=== PATIENT | female | born 1935 | race Caucasian/White ===

== ENCOUNTER 2017-05-28 14:36 | Emergency (ER) | payer MEDICARE ==
--- NOTE | 2017-05-28 14:50 | Emergency Department Record ---
History of Present Illness - General Chief Complaint: Chest Pain Stated Complaint: CHEST PAINS Time Seen by Provider: 05/28/17 14:46 Source: Patient Mode of Arrival: Ambulatory Limitations: No limitations - History of Present Illness Initial Comments: 81 yo female presents with heaviness in the chest the last 3-4 days that comes and goes. She states it will last several minutes then resolve. It is not related to any particular activity. She has had some left neck and left arm pain at times as well. She states timing ibrahim they have occurred at the same time. No fevers, chills, cough, nausea or vomiting. She has some strong urine odor. She has a history of CABG with 2 cardiac stents. Last stent was about 5 years ago. Gynecological Assistant is Dr Olsen. PCP is Hallack. MOORE Complaint: Chest pain -: Days(s) Onset: Other Pain Location: Left chest Pain Radiation: LUE, Jaw/teeth Severity: Moderate Quality: Heaviness Consistency: Intermittent Improves With: Nothing Worsens With: Nothing Context: Other Anginal Symptoms: Other Treatments Prior to Arrival: None - Related Data Previous Rx's Medication Instructions Recorded Insulin Detemir [Levemir Flextouch] 35 unit SQ 0700 #0 syringe 06/24/16 Allergies Allergy/AdvReac Type Severity Reaction Status Date / Time CORKY Inhibitors Allergy cough Verified 05/28/17 14:55 acetaminophen Allergy HIVES Verified 05/28/17 14:55 oxycodone Allergy HIVES Verified 05/28/17 14:55 shellfish derived Allergy HIVES Verified 05/28/17 14:55 iv contrast Allergy HIVES Uncoded 05/28/17 14:55 Review of Systems Constitutional: Denies: Chills, Fever, Malaise, Weakness Eyes: Denies: Eye discharge, Eye pain, Photophobia, Vision change ENT: Denies: Congestion, Dental pain, Ear pain, Throat pain Respiratory: Denies: Cough, Dyspnea, Hemoptysis, Stridor, Wheezes Cardiovascular: Reports: Chest pain. Denies: Edema, Syncope Endocrine: Denies: Fatigue Gastrointestinal: Denies: Abdominal pain, Diarrhea, Nausea, Vomiting Genitourinary: Reports: Dysuria. Denies: Urgency Musculoskeletal: Reports: Myalgia, Neck pain. Denies: Arthralgia, Back pain Skin: Denies: Bruising, Change in color, Rash Neurological: Denies: Confusion, Headache, Numbness Psychiatric: Denies: Anxiety Hematological/Lymphatic: Denies: Blood Clots, Easy bleeding, Easy bruising, Swollen glands Past Medical History - SOCIAL HISTORY Smoking Status: Never smoker - RESPIRATORY Hx Respiratory Disorders: No - CARDIOVASCULAR Hx Cardio Disorders: Yes Hx Cardiac Cath: Yes Hx Hypertension: Yes Hx Vascular Disease: Yes - NEURO Hx Neuro Disorders: No - GI Hx GI Disorders: Yes Hx Abdominal Pain: Yes Hx Diverticulitis: Yes (non diagnosed) - Hx Genitourinary Disorders: Yes Hx Renal Disease: Yes Hx UTI: Yes - ENDOCRINE Hx Endocrine Disorders: Yes Hx Diabetes: Yes (Type 2) Hx Thyroid Disease: No - MUSCULOSKELETAL Hx Musculoskeletal Disorders: Yes Hx Arthritis: Yes - PSYCH Hx Psych Problems: Yes Hx Anxiety: Yes - HEMATOLOGY/ONCOLOGY Hx Hematology/Oncology Disorders: No Family Medical History Hx Cancer: Father Hx Stroke: Mother Physical Exam - General General Appearance: Alert, Oriented x3, Cooperative, No acute distress Limitations: No limitations - Head Head exam: Normal inspection - Eye Eye exam: Normal appearance, PERRL - ENT ENT exam: Normal exam Ear exam: Normal external inspection Nasal Exam: Normal inspection Mouth exam: Normal external inspection Teeth exam: Normal inspection Throat exam: Normal inspection - Neck Neck exam: Normal inspection, Full ROM. negative: Meningismus, Tenderness - Respiratory Respiratory exam: Normal lung sounds bilaterally. negative: Accessory muscle use, Decreased breath sounds, Respiratory distress, Rhonchi, Stridor, Wheezes - Cardiovascular Cardiovascular Exam: Regular rate, Normal rhythm, Normal heart sounds Peripheral Pulses: 2+: Radial (R), Radial (L) - GI/Abdominal GI/Abdominal exam: Soft, Tenderness. negative: Distended, Guarding, Rebound, Rigid - Rectal Rectal exam: Deferred - exam: Deferred - Extremities Extremities exam: Normal inspection, Full ROM, Normal capillary refill. negative: Tenderness - Back Back exam: Reports: Normal inspection, Full ROM. Denies: CVA tenderness (R), CVA tenderness (L), Muscle spasm, Rash noted, Tenderness - Neurological Neurological exam: Alert, Normal gait, Oriented X3 - Psychiatric Psychiatric exam: Normal affect, Normal mood - Skin Skin exam: Dry, Intact, Normal color, Warm Course - Reevaluation(s) Reevaluation #1: EKG 14:43 NSR rate of 65, intervals normal, axis L, ST NS lateral changes, simialr to 05/04/17 05/28/17 14:48 05/28/17 15:32 The CBC was reviewed. No acute changes 05/28/17 15:38 No acute changes on the CMP The Troponin is negative at 0.01 The CXR was S/P CABG otherwise no acute changes. 05/28/17 16:02 I BRIEN Reyna of at [facility] [place] He accepts the patient for transfer for further testing Medical Decision Making - Lab Data Result diagrams: 05/28/17 14:45 05/28/17 14:45 Disposition Disposition: Transfer Clinical Impression: Chest pain Disposition: Still a Patient at [facility] Transfer To: [facility] [place] Reason For Transfer: chest pain history of CAD Accepting Physician: Axel Time Discussed w/Accepting Physician: 16:03 Condition: (1) Good Forms: Patient Portal Access Time of Disposition: 16:03 Quality - Quality Measures Quality Measures: N/A - Blood Pressure Screening Does Patient Have Any of the Following: Active Dx of HTN Blood Pressure Classification: Pre-Hypertensive BP Reading Systolic Measurement: 183 Diastolic Measurement: 86 Screening for High Blood Pressure: Patient Exclusion, Hx of HTN [G9744]
[2017-05-28 15:07] LABS: BASO % 0.4 % (0-6); EOS % 2.6 % (0-6); GRAN % 62.9 % (47-80); HEMATOCRIT 43.3 % (35.0-47.0); HEMOGLOBIN 14.2 gm/dl (11.6-16.0); LYMPH % 24.2 % (16-45); MEAN CELL VOLUME 85.4 fl (81-97); MEAN CORPUSCULAR HGB CONC 32.8 g/dl (32-36); MEAN PLATELET VOLUME 8.7 fl (7.4-10.4); MONO % 9.9 % (0-9); PLATELET COUNT 222 K/uL (130-400); RED BLOOD COUNT 5.07 M/uL (3.80-5.40); RED CELL DISTRIBUTION WIDTH 14.4 % (11.5-14.5); WHITE BLOOD COUNT W/O DIFF 8.1 K/uL (4.2-12.2)
[2017-05-28 15:19] LABS: PARTIAL THROMBOPLASTIN TIME 25.8 SECONDS (24.5-39.1); PROTHROMBIN TIME (PATIENT) 10.7 SECONDS (9.5-12.1)
[2017-05-28 15:28] LABS: BLOOD UREA NITROGEN 15 mg/dL (8-23); CREATININE 0.8 mg/dL (0.5-0.9); EST GLOMERULAR FILTRATION RATE > 60 mL/min
[2017-05-28 15:29] LABS: TOTAL PROTEIN 7.9 g/dL (6.6-8.7)
[2017-05-28 15:31] LABS: GLUCOSE,RANDOM 133 mg/dL (74-109)
[2017-05-28 15:33] LABS: ALB/GLOB RATIO 1.3 (1.1-1.8); ALBUMIN 4.4 g/dL (4.0-5.0); ALKALINE PHOSPHATASE 91 U/L (35-104); ALT/SGPT 12 U/L (<33); AST/SGOT 15 U/L (10.0-35.0); CREATINE PHOSPHOKINASE 78 U/L (26-192)
[2017-05-28 15:51] LABS: URINE APPEARANCE CLEAR; URINE BILIRUBIN NEGATIVE (NEGATIVE); URINE BLOOD TRACE-I (NEGATIVE); URINE COLOR YELLOW; URINE GLUCOSE (UA) NEGATIVE (NEGATIVE); URINE KETONE NEGATIVE (NEGATIVE); URINE LEUKOCYTE ESTERASE TRACE (NEGATIVE); URINE NITRITE NEGATIVE (NEGATIVE); URINE PROTEIN NEGATIVE (NEGATIVE); URINE UROBILINOGEN 0.2 E.U./dL (0.20 - 1.00)
[2017-05-28] MEDS ORDERED: ASPIRIN 81 MG CHEWABLE TABLET PO ONE (16:03)
[2017-05-28 16:07] LABS: URINE BACTERIA FEW; URINE EPITHELIAL CELLS 0 - 2 (FEW); URINE RBC 0 - 2 (NONE SEEN); URINE WBC 0 - 2 (0-2/hpf)
--- NOTE | 2017-05-29 09:20 | RADIOLOGY REPORT ---
DATE: 05/28/2017 at 1502 hours. EXAM: SINGLE-VIEW, CHEST. HISTORY: Chest tightness and pain. Previous open-heart surgery. TECHNIQUE: A single AP upright view of the chest was performed. COMPARISON: None. FINDINGS: The patient is status post median sternotomy. The heart is upper normal in size. There is calcification of the aorta. The mediastinum and pulmonary vasculature are normal. There are no acute infiltrates or effusions. There is no pneumothorax. The bones appear intact. IMPRESSION: NO ACUTE CHEST PATHOLOGY. JOB NUMBER: [id number] [facility]
== END 2017-05-28 18:06 | disposition still patient (30) ==
LOC: ER 14:36
DX: R07.89 Other chest pain (principal); I10 Essential (primary) hypertension; E11.9 Type 2 diabetes mellitus without complications; Z95.1 Presence of aortocoronary bypass graft; Z79.4 Long term (current) use of insulin
CPT/HCPCS: 71045; 80053; 81001; 82550; 82553; 83880; 84484; 85025; 85610; 85730; 93005; 93010; 99285

== ENCOUNTER 2019-02-24 12:04 | Observation (INO) | payer MEDICARE ==
--- NOTE | 2019-02-24 12:32 | Emergency Department Record ---
History of Present Illness - General Chief complaint: Nausea, Vomiting, Diarrhea Stated complaint: DIARRHEA X3DAYS,SHAKEY Time Seen by Provider: 02/24/19 12:28 Source: Patient - History of Present Illness Initial comments: The patient states she has had 3 days of diarrhea, 3-4 episodes daily. She denies nausea or vomiting. She has a long medical history of multiple medical problems including diabetes for which she takes Lantus. She denies chest pain, REE, fevers, or chills. MD complaint: Diarrhea - Related Data Home Medications Medication Instructions Recorded Confirmed Last Taken Bupropion HCl [Wellbutrin Xl] 150 mg PO DAILY 02/24/19 02/24/19 02/24/19 Naproxen [Naprosyn] 500 mg PO BID PRN 02/24/19 02/24/19 02/24/19 Allergies Allergy/AdvReac Type Severity Reaction Status Date / Time CORKY Inhibitors Allergy cough Verified 05/28/17 14:55 acetaminophen Allergy HIVES Verified 05/28/17 14:55 oxycodone Allergy HIVES Verified 05/28/17 14:55 shellfish derived Allergy HIVES Verified 05/28/17 14:55 iv contrast Allergy HIVES Uncoded 05/28/17 14:55 Review of Systems Reviewed: No additional complaints except as noted below Constitutional: Reports: As per HPI. Denies: Chills, Fever, Malaise, Night sweats, Weakness, Weight change Eyes: Reports: As per HPI. Denies: Eye discharge, Eye pain, Photophobia, Vision change ENT: Reports: As per HPI. Denies: Congestion, Dental pain, Ear pain, Epistaxis, Hearing loss, Throat pain Respiratory: Reports: As per HPI. Denies: Cough, Dyspnea, Hemoptysis, Stridor, Wheezes Cardiovascular: Reports: As per HPI. Denies: Arrhythmia, Chest pain, Dyspnea on exertion, Edema, Murmurs, Orthopnea, Palpitations, Paroxysmal nocturnal dyspnea, Rheumatic Fever, Syncope Endocrine: Reports: As per HPI. Denies: Fatigue, Heat or cold intolerance, Polydipsia, Polyuria Gastrointestinal: Reports: As per HPI. Denies: Abdominal pain, Constipation, Diarrhea, Hematemesis, Hematochezia, Melena, Nausea, Vomiting Genitourinary: Reports: As per HPI. Denies: Abnormal menses, Discharge, Dyspareunia, Dysuria, Frequency, Hematuria, Incontinence, Retention, Urgency Musculoskeletal: Reports: As per HPI. Denies: Arthralgia, Back pain, Gout, Joint swelling, Myalgia, Neck pain Skin: Reports: As per HPI. Denies: Bruising, Change in color, Change in hair/nails, Lesions, Pruritus, Rash Neurological: Reports: As per HPI. Denies: Abnormal gait, Confusion, Headache, Numbness, Paresthesias, Seizure, Tingling, Tremors, Vertigo, Weakness Psychiatric: Reports: As per HPI. Denies: Anxiety, Auditory hallucinations, Depression, Homicidal thoughts, Suicidal thoughts, Visual hallucinations Hematological/Lymphatic: Reports: As per HPI. Denies: Anemia, Blood Clots, Easy bleeding, Easy bruising, Swollen glands Past Medical History - SOCIAL HISTORY Smoking Status: Never smoker - RESPIRATORY Hx Respiratory Disorders: No - CARDIOVASCULAR Hx Cardio Disorders: Yes Hx Cardiac Cath: Yes Hx Hypertension: Yes Hx Vascular Disease: Yes - NEURO Hx Neuro Disorders: No - GI Hx GI Disorders: Yes Hx Abdominal Pain: Yes Hx Diverticulitis: Yes (non diagnosed) - Hx Genitourinary Disorders: Yes Hx Renal Disease: Yes Hx UTI: Yes - ENDOCRINE Hx Endocrine Disorders: Yes Hx Diabetes: Yes (Type 2) Hx Thyroid Disease: No - MUSCULOSKELETAL Hx Musculoskeletal Disorders: Yes Hx Arthritis: Yes - PSYCH Hx Psych Problems: Yes Hx Anxiety: Yes - HEMATOLOGY/ONCOLOGY Hx Hematology/Oncology Disorders: No Family Medical History Hx Cancer: Father Hx Stroke: Mother Physical Exam - General General Appearance: Alert, Oriented x3, Cooperative, No acute distress - Head Head exam: Normal inspection - Eye Eye exam: Normal appearance, PERRL, EOMI. negative: Conjunctival injection, Nystagmus Pupils: Normal accommodation - ENT ENT exam: Normal exam, Mucous membranes moist, Normal external ear exam, Normal orophraynx, TM's normal bilaterally Ear exam: Normal external inspection. negative: External canal tenderness Nasal Exam: Normal inspection. negative: Discharge, Sinus tenderness Mouth exam: Normal external inspection, Tongue normal Teeth exam: Normal inspection. negative: Dental caries Throat exam: Normal inspection. negative: Tonsillar erythema, Tonsillar exudate - Neck Neck exam: Normal inspection, Full ROM. negative: Lymphadenopathy, Meningismus, Tenderness - Respiratory Respiratory exam: Normal lung sounds bilaterally. negative: Respiratory distress - Cardiovascular Cardiovascular Exam: Regular rate, Normal rhythm, Normal heart sounds - GI/Abdominal GI/Abdominal exam: Soft, Normal bowel sounds, Tenderness (left side of abdomen on palpation is mildly tender.) - Rectal Rectal exam: Deferred - exam: Deferred - Extremities Extremities exam: Normal inspection, Full ROM, Normal capillary refill. negative: Calf tenderness, Pedal edema, Tenderness - Back Back exam: Reports: Normal inspection, Full ROM. Denies: CVA tenderness (R), CVA tenderness (L), Muscle spasm, Rash noted, Tenderness - Neurological Neurological exam: Alert, CN II-XII intact, Normal gait, Oriented X3, Reflexes normal. negative: Altered, Motor sensory deficit - Psychiatric Psychiatric exam: Normal affect, Normal mood - Skin Skin exam: Dry, Intact, Normal color, Warm Course - Reevaluation(s) Reevaluation #1: 02/24/19 16:[address] Deluna who accepts patient for observation and hydration. Patient in agreement with this plan. Reevaluation #2: Patient has not had any diarrhea while in the emergency department. 02/24/19 16:07 Medical Decision Making - Management Options MDM Management: Additional Work-up Planned (e.g. ADM/Transfer/OP Study) - Data Complexity MDM Data: Labs Ordered and/or Reviewed (BUN 36; Cr 1.5, significantly elevated from priors; UA: 3+bact, 36-50 WBC, 0-2 RBC, +N.), X-Ray Ordered and/or Reviewed (CT scan adom pelvis: No bowel obstruction or colitis; chronic changes. Per radiologist.) - Lab Data Result diagrams: 02/24/19 13:08 02/24/19 13:08 Disposition Disposition: Admit Clinical Impression: Kidney infection, Renal insufficiency, Dehydration Diarrhea Qualifiers: Diarrhea type: unspecified type Qualified Code(s): R19.7 - Diarrhea, unspecified Disposition: Still a Patient at [facility] Decision to Admit: Admit from ER Decision to Admit Date: 02/24/19 Decision to Admit Time: 15:52 Accepting Physician: Dr. Deluna Condition: (2) Stable Quality - Quality Measures Quality Measures: N/A - Blood Pressure Screening Does Patient Have Any of the Following: No Blood Pressure Classification: Hypertensive Reading Systolic Measurement: 142 Diastolic Measurement: 57 Screening for High Blood Pressure: Patient Exclusion, Hx of HTN [G9744]
[2019-02-24] MEDS ORDERED: 0.9 % SODIUM CHLORIDE 1000ML 1,000 ML IV ONE ×2 (12:54→16:37)
[2019-02-24 13:19] LABS: ABSOLUTE NEUTROPHIL COUNT 7.98; HEMATOCRIT 41.1 % (35.0-47.0); HEMOGLOBIN 12.9 gm/dl (11.6-16.0); MEAN CELL VOLUME 86.5 fl (81-97); MEAN CORPUSCULAR HEMOGLOBIN 27.2 pg (27-33); MEAN CORPUSCULAR HGB CONC 31.4 g/dl (32-36); MEAN PLATELET VOLUME 8.5 fl (7.4-10.4); PLATELET COUNT 234 K/uL (130-400); RED BLOOD COUNT 4.75 M/uL (3.80-5.40); RED CELL DISTRIBUTION WIDTH 15.1 % (11.5-14.5); WHITE BLOOD COUNT W/O DIFF 9.8 K/uL (4.2-12.2)
[2019-02-24 14:06] LABS: BILIRUBIN,TOTAL 0.2 mg/dL (0.2-1.0); CREATININE 1.5 mg/dL (0.5-0.9); TOTAL PROTEIN 7.4 g/dL (6.6-8.7)
[2019-02-24 14:11] LABS: ALB/GLOB RATIO 1.5 (1.1-1.8); ALBUMIN 4.4 g/dL (4.0-5.0)
[2019-02-24 14:47] LABS: URINE APPEARANCE CLEAR; URINE BILIRUBIN NEGATIVE (NEGATIVE); URINE BLOOD SMALL (NEGATIVE); URINE COLOR YELLOW; URINE GLUCOSE (UA) NEGATIVE (NEGATIVE); URINE KETONE NEGATIVE (NEGATIVE); URINE LEUKOCYTE ESTERASE LARGE (NEGATIVE); URINE NITRITE POSITIVE (NEGATIVE); URINE PROTEIN NEGATIVE (NEGATIVE); URINE UROBILINOGEN 0.2 E.U./dL (0.20 - 1.00)
[2019-02-24 15:05] LABS: URINE BACTERIA 3+; URINE EPITHELIAL CELLS 21 - 35 (FEW); URINE RBC 0 - 2 (NONE SEEN); URINE WBC 36 - 50 (0-2/hpf)
--- NOTE | 2019-02-24 15:22 | CT SCAN REPORT ---
EXAMINATION: CT Abdomen and Pelvis without IV Contrast EXAM DATE: 02/24/2019 1:41 PM TECHNIQUE: Standard protocol CT imaging of the abdomen and pelvis was performed without intravenous c ontrast. INDICATION: left sided AP, diarrhea; COMPARISON: 06/22/2016 ENCOUNTER: Not applicable CT ABDOMEN AND PELVIS FINDINGS: Lung Bases: Included extent of the lung bases are clear. Post surgical changes consistent with prior CABG Hepatobiliary: The liver has a normal size with a smooth surface. The gallbladder is absent. There is no biliary dilatation. Pancreas: The pancreas is normal. Spleen: The spleen is not enlarged. Adrenals: The adrenal glands are normal. Kidneys, Ureters, & Bladder: 2 right-sided renal cystic lesions measure approximately 3 cm in diamete r. No hydronephrosis. Gastrointestinal: The stomach and small bowel are normal with no obstruction or inflammation. Anastom otic suture noted in the cecum consistent with ileocolic anastomosis. No evidence of bowel obstructio n or colitis. Prominent fluid within the colon. Appendix is likely surgically absent Reproductive Organs: The uterus is absent. Lymphatic System: There is no adenopathy within the abdomen or pelvis. Vasculature: Normal caliber abdominal aorta. Extensive arterial calcification Peritoneum: No free fluid, free air, or inflammation Abdominal wall & Musculoskeletal: No suspicious bone lesions. Degenerative changes of the spine Assessment of the solid organs, soft tissues, and vascular structures is overall limited on noncontra st imaging, IMPRESSION: 1. Post surgical change of the cecum with ileocolic anastomosis, without evidence of complication. Th ere is prominent fluid in the colon but no evidence of bowel obstruction or colitis. 2. Other chronic findings as above. Please note that interpretation was delayed due to technical issues the dictation system Dictated by: PRISCILLA REEVES MD on 02/24/2019 3:15 PM. .
[2019-02-24] MEDS ORDERED: 0.9 % SODIUM CHLORIDE 1,000 ML BAG IV ONE (15:43)
[2019-02-24] MEDS ORDERED: CEFTRIAXONE SODIUM 1 GM in 0.9 % SODIUM CHLORIDE 100ML 100 ML IVPB ONE (15:48)
[2019-02-24] MEDS ORDERED: ALPRAZOLAM 0.25 MG TABLET PO PRN (16:37)
[2019-02-24] MEDS ORDERED: ONDANSETRON HCL IV 4 MG/2 ML VIAL IVP PRN (16:37)
[2019-02-24] MEDS ORDERED: NAPROXEN 250 MG TABLET PO PRN (17:01)
[2019-02-24] MEDS ORDERED: CITALOPRAM 20 MG TABLET PO SCH (22:00)
[2019-02-24] MEDS ORDERED: VIT A PO SCH (22:00)
[2019-02-24] MEDS ORDERED: [UNRECOGNIZED DRUG - OTHER] PO SCH (22:00)
[2019-02-24] MEDS ORDERED: ZNOX PO SCH (22:00)
[2019-02-24] MEDS ORDERED: E AC PO SCH (22:00)
[2019-02-24] MEDS ORDERED: CIPROFLOXACIN LACTATE/D5W 400 MG/200 ML BAG IVPB ONE (22:00)
[2019-02-24] MEDS ORDERED: CUPRIC OXIDE PO SCH (22:00)
[2019-02-24] MEDS: DOCUSATE SODIUM 100 MG CAPSULE PO SCH ×2 (23:00→23:10)
[2019-02-24] MEDS: CARVEDILOL 12.5 MG TABLET PO SCH (23:00)
[2019-02-24] MEDS: LEVEMIR FLEXTOUCH 100 UNIT/ML INSULIN PEN SQ SCH (23:06)
[2019-02-25 04:41] LABS: BASO % 0.2 % (0-6); EOS % 2.3 % (0-6); GRAN % 62.8 % (47-80); HEMATOCRIT 38.5 % (35.0-47.0); HEMOGLOBIN 11.9 gm/dl (11.6-16.0); MEAN CELL VOLUME 86.1 fl (81-97); MEAN CORPUSCULAR HEMOGLOBIN 26.6 pg (27-33); MEAN CORPUSCULAR HGB CONC 30.9 g/dl (32-36); MEAN PLATELET VOLUME 8.5 fl (7.4-10.4); MONO % 11.7 % (0-9); PLATELET COUNT 237 K/uL (130-400); RED BLOOD COUNT 4.47 M/uL (3.80-5.40); RED CELL DISTRIBUTION WIDTH 14.9 % (11.5-14.5); WHITE BLOOD COUNT W/O DIFF 9.2 K/uL (4.2-12.2)
[2019-02-25 04:56] LABS: CREATININE 1.1 mg/dL (0.5-0.9)
[2019-02-25] MEDS ORDERED: FISH OIL PO SCH (10:00)
[2019-02-25] MEDS ORDERED: ASPIRIN 81 MG TABEC PO SCH (10:00)
[2019-02-25] MEDS ORDERED: LEVEMIR FLEXTOUCH 100 UNIT/ML INSULIN PEN SQ SCH (10:00)
[2019-02-25] MEDS ORDERED: AMLODIPINE BESYLATE 5MG TAB PO SCH (10:00)
[2019-02-25] MEDS ORDERED: OMEGA PO SCH (10:00)
[2019-02-25] MEDS ORDERED: HYDROCHLOROTHIAZIDE 12.5 MG CAPSULE PO SCH (10:00)
[2019-02-25] MEDS ORDERED: LOSARTAN POTASSIUM 25 MG TABLET PO SCH (10:00)
[2019-02-25] MEDS ORDERED: BUPROPION HCL 150 MG TAB.SR.12H PO SCH (10:00)
[2019-02-25] MEDS ORDERED: FATTY ACIDS PO SCH (10:00)
[2019-02-25] MEDS ORDERED: UBIDECARENONE 100 MG PO SCH (10:00)
[2019-02-25] MEDS: CARVEDILOL 12.5 MG TABLET PO SCH (10:08)
[2019-02-25] MEDS: LEVEMIR FLEXTOUCH 100 UNIT/ML INSULIN PEN SQ SCH (11:22)
[2019-02-25] MEDS ORDERED: CIPROFLOXACIN LACTATE/D5W 400 MG/200 ML BAG IVPB SCH (12:15)
[2019-02-25] MEDS ORDERED: 0.9 % SODIUM CHLORIDE 1000ML 1,000 ML IV PRN (12:16)
[2019-02-25] MEDS ORDERED: POTASSIUM CHLORIDE 20 MEQ TABLET PO ONE (13:11)
[2019-02-25] MEDS ORDERED: ENOXAPARIN 30 MG/0.3 ML SYR SQ SCH (13:15)
--- NOTE | 2019-02-25 13:54 | Discharge Summary ---
Providers Discharge Summary Date: 02/25/19 Date of admission: 02/24/19 16:19 Expected Date of Discharge: 02/25/19 Attending physician: Gallito Deluna Primary care physician: SANTA MELÉNDEZ M.D. Physical Exam - Vital Signs Vital Signs: Vital Signs - Last 24 Hrs Temp Pulse Resp BP Pulse Ox 02/25/19 09:00 65 18 02/25/19 07:32 98.4 F 65 20 119/60 96 02/24/19 21:29 97.9 F 71 18 145/64 94 L 02/24/19 21:00 71 02/24/19 17:17 69 16 02/24/19 16:37 97.3 F L 69 158/68 97 - General General Appearance: Alert, Oriented x3, Cooperative, No acute distress Limitations: No limitations - Head Head exam: Normal inspection Head exam detail: negative: Abrasion, Contusion - Eye Eye exam: Normal appearance, PERRL, EOMI. negative: Conjunctival injection, Nystagmus Pupils: Normal accommodation - ENT ENT exam: Normal exam, Mucous membranes moist, Normal external ear exam, Normal orophraynx, TM's normal bilaterally Ear exam: Normal external inspection. negative: External canal tenderness Nasal Exam: Normal inspection. negative: Discharge, Sinus tenderness Mouth exam: Normal external inspection, Tongue normal Teeth exam: Normal inspection. negative: Dental caries Throat exam: Normal inspection. negative: Tonsillar erythema, Tonsillar exudate - Neck Neck exam: Normal inspection, Full ROM. negative: Lymphadenopathy, Meningismus, Tenderness - Respiratory Respiratory exam: Normal lung sounds bilaterally. negative: Respiratory distress - Cardiovascular Cardiovascular Exam: Regular rate, Normal rhythm, Normal heart sounds - GI/Abdominal GI/Abdominal exam: Soft, Normal bowel sounds, Tenderness (left side of abdomen on palpation is mildly tender.) - Rectal Rectal exam: Deferred - exam: Deferred - Extremities Extremities exam: Normal inspection, Full ROM, Normal capillary refill. negative: Calf tenderness, Pedal edema, Tenderness - Back Back exam: Reports: Normal inspection, Full ROM. Denies: CVA tenderness (R), CVA tenderness (L), Muscle spasm, Rash noted, Tenderness - Neurological Neurological exam: Alert, CN II-XII intact, Normal gait, Oriented X3, Reflexes normal. negative: Altered, Motor sensory deficit - Psychiatric Psychiatric exam: Normal affect, Normal mood - Skin Skin exam: Dry, Intact, Normal color, Warm Hospitalization - Hospitalization Admission Diagnosis: kidney infection; renal insufficiency; diarrhea; dehydration - Problem List/Discharge Diagnosis (1) UTI (urinary tract infection) Current Visit: Yes Status: Acute Discharge Diagnosis: Urinary tract infection type: acute cystitis Hematuria presence: without hematuria Qualified Code(s): N30.00 - Acute cystitis without hematuria Base Code: N39.0 - URINARY TRACT INFECTION, SITE NOT SPECIFIED Diagnosis Priority: Primary Comment: urine showing signs of a UTI but she had a fair amount of epi cells. Will start cipro 500 mg bid for 7 days and don't want to go longer than 7 days because of her history of c diff. She states no diarrhea for 24 hours now (2) Hypoglycemia Current Visit: Yes Status: Acute Base Code: E16.2 - HYPOGLYCEMIA, UNSPECIFIED Diagnosis Priority: Secondary Comment: low glucose during the night 47 reqyured arange juice and food and sugar came up. Will decrease her Lantus to 10 units twice a day and she takes her lantus Twice a day prior to coming to the ED. I told her her surgars may come up at home and to check her sugar three times a day and show her DrHelen the numbers and he can adjust her insulin (3) Dehydration Current Visit: Yes Status: Acute Base Code: E86.0 - DEHYDRATION Diagnosis Priority: Primary (4) Diarrhea Current Visit: Yes Status: Acute Discharge Diagnosis: Diarrhea type: unspecified type Qualified Code(s): R19.7 - Diarrhea, unspecified Base Code: R19.7 - DIARRHEA, UNSPECIFIED Diagnosis Priority: Primary (5) Renal insufficiency Current Visit: Yes Status: Acute Base Code: N28.9 - DISORDER OF KIDNEY AND URETER, UNSPECIFIED Diagnosis Priority: Primary Comment: improved with dydration and creat is 1.1 - Disposition much improved and will discharge. She is eating and drinking and no vomiting - Hospitalization Course Disposition: Home, Self-Care Hospital Course: patient is improved Procedures: Imaging and X-Rays 02/24/19 12:54 ABDOMEN/PELVIS WO CONTRAST [CT] Stat Abnormal Labs: Abnormal Lab Results 02/24/19 02/24/19 02/24/19 Range/Units 13:08 13:08 13:29 MCH (27-33) pg MCHC 31.4 L (32-36) g/dl RDW 15.1 H (11.5-14.5) % Neutrophils % 84.0 H (47-80) % Monocytes % (0-9) % Lymphocytes 9.0 L (16-45) % Potassium (3.4-4.5) mmol/L Chloride (98-107) mmol/L BUN 36 H (8-23) mg/dL Creatinine 1.5 H (0.5-0.9) mg/dL POC Glucose (70-110) mg/dL Random Glucose 182 H (74-109) mg/dL Urine Blood Small H (NEGATIVE) Urine Nitrite Positive H (NEGATIVE) Ur Leukocyte Esterase Large H (NEGATIVE) 02/24/19 02/25/19 02/25/19 Range/Units 22:00 04:25 04:30 MCH 26.6 L (27-33) pg MCHC 30.9 L (32-36) g/dl RDW 14.9 H (11.5-14.5) % Neutrophils % (47-80) % Monocytes % 11.7 H (0-9) % Lymphocytes (16-45) % Potassium (3.4-4.5) mmol/L Chloride (98-107) mmol/L BUN (8-23) mg/dL Creatinine (0.5-0.9) mg/dL POC Glucose 134 H 42 L* (70-110) mg/dL Random Glucose (74-109) mg/dL Urine Blood (NEGATIVE) Urine Nitrite (NEGATIVE) Ur Leukocyte Esterase (NEGATIVE) 02/25/19 02/25/19 02/25/19 Range/Units 04:30 04:30 05:10 MCH (27-33) pg MCHC (32-36) g/dl RDW (11.5-14.5) % Neutrophils % (47-80) % Monocytes % (0-9) % Lymphocytes (16-45) % Potassium 3.2 L (3.4-4.5) mmol/L Chloride 110 H (98-107) mmol/L BUN (8-23) mg/dL Creatinine 1.1 H (0.5-0.9) mg/dL POC Glucose 127 H (70-110) mg/dL Random Glucose 47 L* 47 L* (74-109) mg/dL Urine Blood (NEGATIVE) Urine Nitrite (NEGATIVE) Ur Leukocyte Esterase (NEGATIVE) 02/25/19 Range/Units 07:30 MCH (27-33) pg MCHC (32-36) g/dl RDW (11.5-14.5) % Neutrophils % (47-80) % Monocytes % (0-9) % Lymphocytes (16-45) % Potassium (3.4-4.5) mmol/L Chloride (98-107) mmol/L BUN (8-23) mg/dL Creatinine (0.5-0.9) mg/dL POC Glucose 176 H (70-110) mg/dL Random Glucose (74-109) mg/dL Urine Blood (NEGATIVE) Urine Nitrite (NEGATIVE) Ur Leukocyte Esterase (NEGATIVE) Condition at Discharge: (2) Stable Discharge Diagnosis: UTI, Dehydration, renal insufficency, diarrhea resolved, DM type 2 VTE Discharge VTE Reason For No Overlap Therapy: Not Indicated Discharge Medications - Discharge Medications Prescriptions: Ciprofloxacin HCl [Cipro] 500 mg PO Q12HR #14 tablet Insulin Glargine,Hum.rec.anlog [Lantus Solostar] 10 units SQ BID #1 insuln.pen Home Medications: Ambulatory Orders Alprazolam [Xanax] 0.25 mg PO QHS PRN 06/22/16 [Last Taken 02/24/19] Amlodipine Besylate [Norvasc] 10 mg PO DAILY 06/22/16 [Last Taken 02/24/19] Aspirin [Ecotrin] 81 mg PO DAILY 06/22/16 [Last Taken 02/24/19] Carvedilol [Coreg] 12.5 mg PO BID 06/22/16 [Last Taken 02/24/19] Citalopram Hydrobromide [Citalopram HBr] 20 mg PO QHS 06/22/16 [Last Taken 02/24/19] Docusate Sodium [Stool Softener] 50 mg PO QHS 06/22/16 [Last Taken 02/24/19] Losartan/Hydrochlorothiazide [Losartan-Hctz 50-12.5 mg Tab] 1 each PO DAILY 06/22/16 [Last Taken 02/24/19] [place]-3 Fatty Acids/Fish Oil [Fish Oil 1,000 mg Softgel] 1 tab PO DAILY 06/22/16 [Last Taken 02/24/19] Ubidecarenone [Coq-10] 200 mg PO QHS 06/22/16 [Last Taken 02/23/19 200 mg] Vit A/C/E AC/Znox/Cupric Oxide [Eye Vitamin-Minerals Tablet] 1 each PO BID 06/22/16 [Last Taken 02/24/19] Bupropion HCl [Wellbutrin Xl] 150 mg PO DAILY 02/24/19 [Last Taken 02/24/19] Naproxen [Naprosyn] 500 mg PO BID PRN 02/24/19 [Last Taken 02/24/19] Ciprofloxacin HCl [Cipro] 500 mg PO Q12HR #14 tablet 02/25/19 [Last Taken Unknown] Insulin Glargine,Hum.rec.anlog [Lantus Solostar] 10 units SQ BID #1 insuln.pen 02/25/19 [Last Taken Unknown] Discharge Plan - Discharge Instructions Activity at Discharge: Increase Activity as Tolerated Diet at Discharge: Diabetic Diet Additional Instructions: follow up with Dr Meléndez in 3 to 5 days increase flids and drink 6 glasses of water per day take cipro 500 mg twice a day for 7 days decrease lantus to 10 units twice a day because she had a low sugar in the hospital 47 in the middle of the night check glucose three times a day and show your primary Dr and he will adjust the lantus as needed Quality Measures - Quality Measures Quality Measures: Advance Directives, Documentation of Current Medications in Medical Record, Elder Maltreatment Screen and Follow-Up Plan, Screening for High Blood Pressure and F/U Documented - Current Medications Quality Measure: Measure #130: Documentation of Current Medications Documentation of Current Medications: <Current Medications Documented/Reviewed> [S7418] - Blood Pressure Screening Quality Measure: Screening for High Blood Pressure and Follow-Up Documented Does Patient Have Any of the Following: Active Dx of HTN Blood Pressure Classification: Hypertensive Reading Systolic Measurement: 142 Diastolic Measurement: 57 Screening for High Blood Pressure: Patient Exclusion, Hx of HTN [G9744] - Advance Directives Quality Measure: Measure #47: Care Plan Advance Directives Established: No Advance Directives Information Provided To Patient: Yes Advance Directives on File: No Living Will: No Power of Meter Readers Supervisor: No Advance Care Planning: <Care Plan/Decision Maker Documented; Discussed & Documented> [0711L] - Elder Abuse Suspicion Index Screening: Elder Abuse Suspicion Index Screening Rely on people for bathing, dressing, shopping, banking, etc: Yes Prevented from getting food, clothes, medication, etc: No Made to feel shamed or threatened by someone: No Forced to sign papers or use money against will: No Feel afraid, touched in ways not wanted or hurt physically: No Poor eye contact, withdrawn, malnourished, cuts or bruises: No Screening Result: Negative result EASI Reference Information: Aleida EGAN, Primo Gauthier, Grisel Engle, Therese Briceño.Development and validation of a tool to assist physicians identification of elder abuse: The Elder Abuse Suspicion Index (EASI ). Journal of Elder Abuse and Neglect, 2008; 20 (3): 276-300. - Elder Maltreatment Screen Quality Measures: Elder Maltreatment Screen and Follow-Up Plan Elder Maltreatment Screen: <Negative, No Follow-Up Plan Required> [G8734]
--- NOTE | 2019-02-25 14:03 | Physician Progress Note ---
DVT/PE Assessment - Risk for VTE Risk for VTE: Yes Risk Level: Moderate Risk Assessment Date: 02/25/19 Risk Assessment Time: 14:02 VTE Orders Placed or Will Be Placed: Yes - Active Medicaitons Current Medications: Current Medications Alprazolam (Xanax) 0.25 mg PO QHS PRN PRN Reason: ANXIETY Last Admin: 02/24/19 23:04 Dose: 0.25 mg Documented by: Amlodipine Besylate (Norvasc) 10 mg PO DAILY [facility] Last Admin: 02/25/19 10:07 Dose: 10 mg Documented by: Aspirin (Ecotrin (Ec)) 81 mg PO DAILY [facility] Last Admin: 02/25/19 10:08 Dose: 81 mg Documented by: Bupropion HCl (Wellbutrin Sr) 150 mg PO DAILY [facility] Last Admin: 02/25/19 10:07 Dose: 150 mg Documented by: Carvedilol (Coreg) 12.5 mg PO BID [facility] Last Admin: 02/25/19 10:08 Dose: 12.5 mg Documented by: Citalopram Hydrobromide (Celexa) 20 mg PO QHS [facility] Last Admin: 02/24/19 23:00 Dose: 20 mg Documented by: Docusate Sodium (Colace) 100 mg PO QHS [facility] Last Admin: 02/24/19 23:10 Dose: 100 mg Documented by: Enoxaparin Sodium (Lovenox) 30 mg SQ DAILY [facility] Hydrochlorothiazide (Hctz 12.5mg) 12.5 mg PO DAILY [facility] Last Admin: 02/25/19 10:08 Dose: 12.5 mg Documented by: Sodium Chloride () 1,000 mls @ 75 mls/hr IV .[id number] PRN PRN Reason: LARGE VOLUME IV Last Admin: 02/25/19 12:21 Dose: 75 mls/hr Documented by: Ciprofloxacin Lactate (Cipro) 400 mg in 200 mls @ 200 mls/hr IVPB Q12H [facility] Stop: 03/02/19 12:00 Insulin Detemir (Levemir Flextouch) 10 unit SQ BID [facility] Last Admin: 02/25/19 10:09 Dose: Not Given Documented by: Losartan Potassium (Cozaar) 50 mg PO DAILY [facility] Last Admin: 02/25/19 10:07 Dose: 50 mg Documented by: Naproxen (Naprosyn) 500 mg PO BID PRN PRN Reason: PAIN - MILD (1-4) Non-Formulary Medication ([place]-3 Fatty Acids/Fish Oil [Fish Oil 1,000 Mg Softgel]) 1 tab PO DAILY MIRNA Non-Formulary Medication (Ubidecarenone [Coq-10]) 100 mg PO DAILY MIRNA Non-Formulary Medication (Vit A/C/E Ac/Znox/Cupric Oxide [Eye Vitamin-Minerals Tablet]) 1 each PO BID MIR[facility] Ondansetron HCl (Zofran) 4 mg IVP Q4H PRN PRN Reason: NAUSEA Potassium Chloride (Klor-Con) 20 meq PO NOW ONE Stop: 02/25/19 13:12
[2019-02-26] MEDS ORDERED: CIPROFLOXACIN LACTATE/D5W 400 MG/200 ML BAG IVPB SCH (01:00)
--- NOTE | 2019-02-26 07:50 | Discharge Summary ---
DATE OF ADMISSION: 02/24/2019 DATE OF DISCHARGE: 02/25/2019 ATTENDING PHYSICIAN: Gallito Deluna, DO DISCHARGE DIAGNOSES: 1. Urinary tract infection. 2. Diarrhea, which has resolved. 3. Dehydration resolved. 4. Renal insufficiency, much improved. The creatinine on discharge is 1.1, BUN is 23, potassium is 3.2. She did have a low sugar during the night, it went down to 47, given some orange juice and food and it came back up. 5. Hypoglycemia during the middle of the night, we will recommend decreasing the Lantus dose to 10 units twice a day from 25 units twice a day. This may need to be increased as she goes home and eats more food and is feeling better. 6. Status post hypertension. 7. Status post anxiety and depression. . 8. Status post coronary artery disease. 9. Status post diabetes mellitus type 2. REASON FOR HOSPITALIZATION: This 83-year-old female presents to the emergency department with 3 to 4 days of diarrhea, 3 to 4 times a day, but her last episode of diarrhea was the morning of coming to the ER. She lives alone. She was evaluated in the emergency department for weakness and dehydration by Dr. Dumont and diagnosed with a urinary tract infection and a kidney infection. CAT scan was unremarkable . CT of the abdomen and pelvis. She is admitted for IV antibiotics, IV hydration, and further evaluation. Therapy provided: She is put on IV fluids, started on Cipro IV 400 mg b.i.d., given 1 dose of Rocephin in the emergency department. She was feeling much better at my evaluation. She did have a sugar of 47 that required some orange juice and food, which came up to 176 this morning and we will drop her Lantus. We held the morning Lantus dose and the sugar at lunchtime was 201. HOSPITAL COURSE: Much improved. CONDITION ON DISCHARGE: Much improved. DISCHARGE INSTRUCTIONS: Follow up with Dr. Shiv Pink, her primary doctor on [address] in 3 to 5 days. Cipro 500 mg b.i.d. for 7 days. Fluids, increase the fluids, decrease the Lantus insulin to 10 units b.i.d. I talked to her about taking it once a day versus twice a day, she has always been taking it twice a day, so I will keep that regimen going. Continue her home medications of COQ ten at 200 units daily, vitamins b.i.d., [place] 3 fatty acids daily, Naprosyn p.r.n., Losartan hydrochlorothiazide 1 daily, stool softener 1 a day, carvedilol 12.5 b.i.d., Wellbutrin 150 daily, aspirin 81 mg daily, amlodipine 10 mg daily, Xanax 0.25 at h.s. MTDD
--- NOTE | 2019-02-26 07:50 | History and Physical Report ---
DATE OF SERVICE: 02/25/2019. DATE OF ADMISSION: CHIEF COMPLAINT: Diarrhea for 3 to 4 days, weakness and nausea, vomiting at home. The patient complains of being shaky since yesterday. She was evaluated in the emergency department with Dr. Dumont. Diagnosed with a urinary tract infection/diarrhea which has resolved; her last time of diarrhea was yesterday morning, and renal insufficiency. The patient was admitted as an observation patient. HISTORY OF PRESENT ILLNESS: As above. MEDICAL HISTORY: Diabetes mellitus; uses Lantus 25 units b.i.d. Hypertension, anxiety, depression, coronary artery disease. Her sports attorney is Dr. Olsen. She had 1/3 of her colon removed secondary to precancerous polyps. SURGICAL HISTORY: Hysterectomy, gallbladder surgery; had 1/3 of her colon removed because of precancerous polyps, coronary artery bypass grafting in 1999, stents x2 three years ago was the last one by Dr. Olsen, bilateral knee replacements. CURRENT MEDICATIONS: 1. Insulin. 2. Lantus 25 units b.i.d. 3. Co-Q 10 200 mg at h.s. 4. Vitamins once b.i.d. 5. [place]-3 fatty acids 1 daily. 6. Naprosyn 500 b.i.d. 7. Losartan/hydrochlorothiazide 50/12.5 1 a day. 8. Colace 50 mg at h.s. 9. Citalopram 20 mg at h.s. 10. Carvedilol 12.5 mg b.i.d. 11. Wellbutrin 150 mg daily. 12. Aspirin 81 mg daily. 13. Amlodipine 10 mg daily. 14. Xanax 0.25 at h.s. p.r.n. 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 OXYCODONE, SHELLFISH. SOCIAL HISTORY: She has never smoked. No alcohol or drug use. FAMILY HISTORY: Her father had cancer. Mother had a stroke. SYSTEMS REVIEW: HEENT: No upper respiratory infection symptoms, cough, cold or congestion. Cardiovascular: No chest pain but she does have cardiac stents, coronary artery bypass grafting. These are stable for the last 2 years. No difficulty breathing. No arrhythmias. No orthopnea. Respiratory: No cough, cold or congestion. Gastrointestinal: She has had diarrhea for 2-3 days about 3-4 times a day. Last episode of diarrhea was yesterday morning on the day of admission. Genitourinary: She denies dysuria, hematuria, frequency or burning on urination but in the emergency department the urine was contaminated and looked bad, and she was diagnosed with a urinary tract infection. Musculoskeletal: No joint or bone abnormalities. Neurologic: No cerebrovascular accidents, paralysis or paresthesias. 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 No lumps in her breast. Endocrine: She has diabetes mellitus for which she uses Lantus insulin 25 units twice a day. Integument: No rash, ulcerative change, moles or yellow skin. PHYSICAL EXAMINATION: VITAL SIGNS: Height is 5'4". Weight is 176 pounds. Temperature 98.4. Pulse 65. Blood pressure 119/60. Respiratory rate 18. Pulse ox 96% on room air. HEENT: Pupils equal, round and react to light and accommodation. Extraocular muscles intact. Throat is clear. Nose clear. Tympanic membranes are rogers. NECK: Supple. No jugular venous distention. No hepatojugular reflux. No carotid bruits. Thyroid is smooth. CARDIOVASCULAR: Regular rate and rhythm without murmurs, clicks, rubs or gallops. RESPIRATORY: Clear to auscultation and percussion. ABDOMEN: Soft. No tenderness on palpation. No rebound or rigidity. No guarding. No bruits. No masses palpated. No hepatosplenomegaly. EXTREMITIES: No pitting edema. No cyanosis. No clubbing. Full range of motion. Peripheral pulses good. BREASTS, GYNECOLOGICAL AND RECTAL: Deferred. NEUROLOGIC: Cranial nerves II-XII intact. No gross defect in sensation. Strength is normal. Deep tendon reflexes equal bilaterally. Babinski is negative. MENTAL STATUS: Alert and oriented x3. IMPRESSION: 1. Urinary tract infection. 2. Diarrhea which has resolved. 3. Dehydration which has resolved. 4. Renal insufficiency which is pre-renal because of the diarrhea and that is much better. PLAN: She was given IV fluids. Given 1 dose of Rocephin in the emergency department. Cipro 400 mg IV b.i.d. At this point, she is feeling much better. Will prepare her for discharge and following up with her primary doctor, Dr.Ralph Ant Pink in the next 3-5 days. [facility]
== END 2019-02-25 15:10 | disposition home or self-care (01) ==
LOC: ER 12:04 → MEDSURG 16:19
PROVIDERS: ADMIT Emergency Medicine; ATTEND Emergency Medicine
DX: N15.9 Renal tubulo-interstitial disease, unspecified (principal); N28.9 Disorder of kidney and ureter, unspecified; E86.0 Dehydration; I10 Essential (primary) hypertension; E11.9 Type 2 diabetes mellitus without complications; Z79.4 Long term (current) use of insulin; M19.90 Unspecified osteoarthritis, unspecified site; I99.9 Unspecified disorder of circulatory system; Z90.49 Acquired absence of other specified parts of digestive tract; Z98.61 Coronary angioplasty status; Z86.73 Personal history of transient ischemic attack (TIA), and cerebral infarction without residual deficits
CPT/HCPCS: 82947; 83690; 85025; 80048; 80053; 36416 ×2; 81001; 82948 ×2; 85027; 74176; G0378 ×2; J0744 ×2; J3490 ×2; 96360; 96361; 96365; 99220; 99285; J1650; J7030

== ENCOUNTER 2019-03-06 09:47 | Emergency (ER) | payer MEDICARE ==
--- NOTE | 2019-03-06 10:21 | Emergency Department Record ---
History of Present Illness - General Chief complaint: Weakness Stated complaint: WEAKNESS Time Seen by Provider: 03/06/19 10:11 Source: Patient Mode of Arrival: Wheelchair Limitations: No limitations - History of Present Illness Initial comments: 83 yo female presents with weakness for three days. She states she has had chronic vertigo, prior strokes, recent UTI, and about 8 months of seeing spots in her vision that are unchanged. She has an 11am doctors appointment with her PCP but came to the ED due to feeling weak. No headaches, no abrupt vision changes, no cough, chest pain. No abdominal pain. No diarrhea. She lives alone but feels safe. She lives three houses down from her grand daughter who is very helpful. She did see her eye doctor but did not mention the 8 months of spots in her vision. No perceived loss of vision. Her granddaughter is present with her. She states she did not see any major changes in her health. MD Complaint: Generalized weakness Location: Generalized Severity: Mild Quality: Other Consistency: Other Improves with: None Worsens with: None Associated Symptoms: Denies other symptoms - [place] Coma Scale Eye Response: (4) Open spontaneously Motor Response: (6) Obeys commands Verbal Response: (5) Oriented [place] Total: 15 - Related Data Home Medications Medication Instructions Recorded Confirmed Last Taken Ciprofloxacin HCl [Cipro] 500 mg PO Q12HR 03/06/19 03/06/19 03/06/19 Insulin Glargine,Hum.rec.anlog 25 units SQ BID 03/06/19 03/06/19 03/06/19 [Lantus Solostar] Allergies Allergy/AdvReac Type Severity Reaction Status Date / Time CORKY Inhibitors Allergy cough Verified 03/06/19 09:56 acetaminophen Allergy HIVES Verified 03/06/19 09:56 oxycodone Allergy HIVES Verified 03/06/19 09:56 shellfish derived Allergy HIVES Verified 03/06/19 09:56 iv contrast Allergy HIVES Uncoded 05/28/17 14:55 Travel Screening - Travel/Exposure Within Last 30 Days Have you traveled within the last 30 days?: No Review of Systems Constitutional: Reports: Weakness. Denies: Chills, Fever, Malaise Eyes: Denies: Eye discharge ENT: Denies: Congestion, Throat pain Respiratory: Denies: Cough, Dyspnea Cardiovascular: Denies: Chest pain, Edema, Palpitations, Syncope Endocrine: Reports: Fatigue. Denies: Polydipsia, Polyuria Gastrointestinal: Denies: Abdominal pain, Diarrhea, Nausea, Vomiting Genitourinary: Denies: Dysuria, Urgency Musculoskeletal: Denies: Arthralgia, Back pain, Myalgia Skin: Denies: Bruising, Change in color, Rash Neurological: Reports: Vertigo. Denies: Abnormal gait, Confusion, Headache, Numbness, Paresthesias, Seizure, Tingling, Tremors Psychiatric: Reports: Anxiety Hematological/Lymphatic: Denies: Easy bleeding, Easy bruising Past Medical History - SOCIAL HISTORY Smoking Status: Never smoker Alcohol Use: None Drug Use: None - RESPIRATORY Hx Respiratory Disorders: No - CARDIOVASCULAR Hx Cardio Disorders: Yes Hx Cardiac Cath: Yes Hx Hypertension: Yes Hx Vascular Disease: Yes - NEURO Hx Neuro Disorders: Yes Hx CVA: Yes Hx TIA: Yes - GI Hx GI Disorders: Yes Hx Abdominal Pain: Yes Hx Diverticulitis: Yes (non diagnosed) - Hx Genitourinary Disorders: Yes Hx Renal Disease: Yes Hx UTI: Yes - ENDOCRINE Hx Endocrine Disorders: Yes Hx Diabetes: Yes (Type 2) Hx Thyroid Disease: No - MUSCULOSKELETAL Hx Musculoskeletal Disorders: Yes Hx Arthritis: Yes - PSYCH Hx Psych Problems: Yes Hx Anxiety: Yes - HEMATOLOGY/ONCOLOGY Hx Hematology/Oncology Disorders: No Family Medical History Any Significant Family History?: Yes Hx Cancer: Father Hx Stroke: Mother Physical Exam - General General Appearance: Alert, Oriented x3, Cooperative, No acute distress Limitations: No limitations - Head Head exam: Atraumatic, Normal inspection - Eye Eye exam: Normal appearance, PERRL, Other (No vision loss in the quadrants, coun ts fingers normally). negative: Conjunctival injection, Scleral icterus Pupils: Normal accommodation - ENT ENT exam: Normal exam, Mucous membranes moist Ear exam: Normal external inspection Nasal Exam: Normal inspection Mouth exam: Normal external inspection - Neck Neck exam: Normal inspection. negative: Tenderness - Respiratory Respiratory exam: Normal lung sounds bilaterally. negative: Respiratory distress, Rhonchi, Stridor, Wheezes - Cardiovascular Cardiovascular Exam: Regular rate, Normal rhythm, Normal heart sounds - GI/Abdominal GI/Abdominal exam: Soft. negative: Tenderness - Rectal Rectal exam: Deferred - exam: Deferred - Extremities Extremities exam: Normal inspection. negative: Tenderness - Back Back exam: Denies: CVA tenderness (R), CVA tenderness (L) - Neurological Neurological exam: Alert, CN II-XII intact, Normal gait (steady), Oriented X3. negative: Abnormal gait, Altered, Motor sensory deficit - Psychiatric Psychiatric exam: Normal affect, Normal mood. negative: Agitated, Anxious - Skin Skin exam: Dry, Intact, Normal color, Warm Course Vital Signs 03/06/19 09:52 Temperature 97.9 F Pulse Rate 77 Respiratory 20 Rate Blood Pressure 177/81 Pulse Ox 96 - Reevaluation(s) Reevaluation #1: 03/06/19 10:28 EKG #1: 10:22 Rate: 71 Rhythm: sinus rhythm [place]: normal Intervals: normal ST segments: anterior ST NS changes, no changes form 05/28/17 Admission 02/25/19 for weakness, NV. UTI. 03/06/19 11:52 The CBC is normal The CMP demonstrates mildy elevated glucose at 198 03/06/19 12:47 The UA is negative for acute process The HCT is negative for acute process 03/06/19 We discussed the results of the tests and questions were answered. No acute findings on examination or testing. The patient is doing well and is requesting DC. She is very steady on her feet. No signs of weakness I offered OBV if she has any concerns with her safety. She declined. Her granddaughter is [address] The patient has medical alert as well. We discussed at length reasons to immediately return to the ED as well as close follow up. The patient will call the PCP for close follow up of this ED visit to review this visit and the tests performed DC vitals were reviewed. Medical Decision Making - Lab Data Result diagrams: 03/06/19 09:57 03/06/19 09:57 Disposition Disposition: Discharge Clinical Impression: Weakness Disposition: Home, Self-Care Condition: (1) Good Instructions: Weakness (ED) Additional Instructions: Review this ER visit and the tests performed with your family doctor Call your doctor for the next available follow up appointment Return to the ER for a recheck if worse, any new concerns or questions Call your eye doctor to again review the vision changes over the last 8 months Forms: Patient Portal Access Time of Disposition: 12:55 Quality - Quality Measures Quality Measures: N/A - Blood Pressure Screening Does Patient Have Any of the Following: Active Dx of HTN Blood Pressure Classification: Hypertensive Reading Systolic Measurement: 149 Diastolic Measurement: 76 Screening for High Blood Pressure: Patient Exclusion, Hx of HTN [F0924]
[2019-03-06 10:26] LABS: ABSOLUTE NEUTROPHIL COUNT 6.96; BASO % 0.2 % (0-6); EOS % 1.4 % (0-6); GRAN % 74.9 % (47-80); HEMATOCRIT 42.7 % (35.0-47.0); HEMOGLOBIN 13.7 gm/dl (11.6-16.0); LYMPH % 16.2 % (16-45); MEAN CELL VOLUME 84.7 fl (81-97); MEAN CORPUSCULAR HEMOGLOBIN 27.2 pg (27-33); MEAN CORPUSCULAR HGB CONC 32.1 g/dl (32-36); MEAN PLATELET VOLUME 8.4 fl (7.4-10.4); MONO % 7.3 % (0-9); PLATELET COUNT 294 K/uL (130-400); RED BLOOD COUNT 5.04 M/uL (3.80-5.40); RED CELL DISTRIBUTION WIDTH 14.4 % (11.5-14.5); WHITE BLOOD COUNT W/O DIFF 9.3 K/uL (4.2-12.2)
[2019-03-06 10:39] LABS: BLOOD UREA NITROGEN 21 mg/dL (8-23)
[2019-03-06 10:40] LABS: EST GLOMERULAR FILTRATION RATE 56 mL/min; TOTAL PROTEIN 8.2 g/dL (6.6-8.7)
[2019-03-06 10:42] LABS: GLUCOSE,RANDOM 198 mg/dL (74-109)
[2019-03-06 10:45] LABS: ALB/GLOB RATIO 1.3 (1.1-1.8); ALBUMIN 4.7 g/dL (4.0-5.0); ALKALINE PHOSPHATASE 118 U/L (35-104); ALT/SGPT 12 U/L (<33); AST/SGOT 15 U/L (10.0-35.0)
[2019-03-06 10:56] LABS: THYROID STIMULATING HORMONE 4.65 uIU/mL (0.270-4.20)
[2019-03-06 12:29] LABS: URINE APPEARANCE CLEAR; URINE BILIRUBIN NEGATIVE (NEGATIVE); URINE BLOOD TRACE-I (NEGATIVE); URINE COLOR YELLOW; URINE GLUCOSE (UA) NEGATIVE (NEGATIVE); URINE KETONE NEGATIVE (NEGATIVE); URINE LEUKOCYTE ESTERASE NEGATIVE (NEGATIVE); URINE NITRITE NEGATIVE (NEGATIVE); URINE PROTEIN NEGATIVE (NEGATIVE); URINE UROBILINOGEN 0.2 E.U./dL (0.20 - 1.00)
[2019-03-06 12:34] LABS: URINE EPITHELIAL CELLS 0 - 2 (FEW); URINE RBC 0 - 2 (NONE SEEN); URINE WBC NONE SEEN (0-2/hpf)
--- NOTE | 2019-03-06 12:34 | CT SCAN REPORT ---
EXAMINATION: CT Head without IV Contrast EXAM DATE: 03/06/2019 12:13 PM TECHNIQUE: Standard protocol CT images of the head were obtained without intravenous contrast. [place] l and sagittal reconstructed images were created. INDICATION: dizziness, off balance, vision change COMPARISON: None HAND DOMINANCE: Unknown. ENCOUNTER: Not applicable FINDINGS: 1. There is no intracranial mass, midline shift, extraaxial fluid collection or hemorrhage. 2. The ventricles, sulci and cisterns are prominent consistent with mild diffuse cerebral atrophy.. 3. Mild areas of low-attenuation are seen in the periventricular white matter and subcortical white matter bilaterally, consistent with chronic small vessel ischemia. A small lacunar infarct is seen in the left thalamus/posterior limb of the internal capsule 4. No depressed or widely calvarial fracture. Mild hyperostosis frontalis interna. 5. The visualized aspects of the orbits, paranasal sinuses, and mastoid air cells are normal. IMPRESSION: 1. No acute intracranial hemorrhage, mass lesion or mass effect. 2. Mild diffuse cerebral atrophy and chronic ischemic change. Dictated by: Nils Orr MD on 03/06/2019 12:15 PM. .
== END 2019-03-06 13:08 | disposition home or self-care (01) ==
LOC: ER 09:47
DX: R53.1 Weakness (principal); I10 Essential (primary) hypertension; E11.9 Type 2 diabetes mellitus without complications; R26.89 Other abnormalities of gait and mobility; Z79.4 Long term (current) use of insulin
CPT/HCPCS: 70450; 80053; 81001; 84443; 84484; 85025; 93005; 93010; 99284